=== PATIENT | male | born 1930 | race Caucasian/White ===

== ENCOUNTER 2016-10-28 16:02 | Inpatient (IN) | payer OTHER ==
--- NOTE | 2016-10-28 18:09 | ED EKG INTERP ---
EKG Interpretation - EKG Time of EKG reading by physician:: 16:08 EKG Read and Signed by:: Vargas Delgado EKG Interpretation (*Must complete 3 of following elements*): Abnormal (Low voltage QRS) Rate: 82 Rhythm: Sinus rhtyhm with frequent and consecutive PVC Attestation - Scribe Verification/Attestation Scribe:: Andre Miguel Acting as Scribe for:: Vargas Delgado Scribe documention review:: This chart was documented by a scribe and accurately reflects the service the provider performed and the decisions made by the provider.
[2016-10-28 18:33] LABS: BASO% 0.6 % (0.0-0.8); EOS# 0.08 X1000 (0.0-0.7); EOS% 1.7 % (0.0-10.0); HEMATOCRIT 43.4 % (42.0-52.0); HEMOGLOBIN 14.2 g/dL (14.0-18.0); LYMPH# 1.15 X1000 (1.2-3.4); LYMPH% 24.9 % (20.5-51.1); MANUAL DIFF NEEDED? NO; MCH 34.6 PG (27-31); MCHC 32.7 g/dL (33-37); MCV 105.9 FL (81-99); MONO% 10.8 % (1.7-9.3); MPV 9.6 FL (7.4-10.4); PLT 183 X1000 (130-400)
--- NOTE | 2016-10-28 18:44 | PROVIDER DOCUMENTATION ---
HPI-Cardiac General - General Chief Complaint: Dizziness Stated Complaint: LOW HEART RATE Time Seen by Provider: 10/28/16 18:11 Source: patient, family Home Medications: Home Medication List Medication Instructions Recorded Confirmed Last Taken Type Aspirin 81 mg PO DAILY 08/02/12 10/28/16 10/28/16 08:00 History Multivitamin [Multivitamins] 1 each PO DAILY 03/24/13 10/28/16 10/28/16 08:00 History Potassium Chloride 10 meq PO EVERY OTHER DAY 10/28/15 10/28/16 10/28/16 08:00 History Allopurinol 100 mg PO DAILY 07/25/16 10/28/16 10/28/16 08:00 History Cyanocobalamin (Vitamin B-12) 1,000 mcg PO DAILY 07/25/16 10/28/16 10/28/16 08: 00 History [Vitamin B12] Arformoterol Neb [Brovana Neb] 15 microgm INH RTQ12H #60 neb 07/29/16 10/28/16 Unknown Rx Digoxin [Lanoxin] 125 microgm PO DAILY #30 tablet 07/29/16 10/28/16 10/21/16 08: 00 Rx Ipratropium [place] Neb [Atrovent 0.5 mg INH RTQ4H #90 neb 07/29/16 10/28/16 Unknown Rx Neb] Levetiracetam [Keppra] 750 mg PO BID #60 tablet 07/29/16 10/28/16 10/28/16 08: 00 Rx Trazodone [Desyrel] 50 mg PO HS PRN PRN #30 tablet 07/29/16 10/28/16 Unknown Rx B12/Levomefolate Calcium/B-6 1,000 mcg PO DAILY 10/28/16 10/28/16 10/28/16 08: 00 History [Foltx Tablet] Diltiazem [Cardizem] 120 mg PO DAILY 10/28/16 10/28/16 10/28/16 08:00 History Furosemide [Lasix] 20 mg PO EVERY OTHER DAY 10/28/16 10/28/16 10/28/16 08:00 History Guaifenesin E.r. [Mucinex] 600 mg PO BID 10/28/16 10/28/16 10/28/16 08:00 History - History of Present Illness-Cardiac Nature of Presenting Problem: Pt is a 86 yom who presents to ER after having a bradycardic episode at Dr. Lopez (GI doctor) for esophageal stretching. Pt reports that when the nurse was taking his vitals, he had a heart rate of 29. Nurse checked it again manually and pt still had H/R of 29, and then Dr. Song checked pt's H/R, it was still 29. Pt complains of dizziness (which pt says is normal for him), palpitations, intermittent diarrhea, loss of appetite, recent weight loss. Pt reports that he passed a renal stone yesterday. Pt denies chest pain, shortness of breath. Quality of Pain: reports: none Severity in ED: moderate Onset/Duration: this evening Timing: gone now, resolved prior to arrival Context/Activities at Onset: reports: light activity Palpitation Quality: slow heart rate History of arrythmia: reports: A-Fib Associated Symptoms: reports: dizziness, fatigue, weakness. denies: diaphoresis , fever/chills, headache, heartburn, nausea, shortness of breath, swelling/lump in chest, syncope, vomiting Review of Systems - Adult - REVIEW OF SYSTEMS - ADULT Constitutional: reports: fatique, weight loss. denies: chills, fever, night sweats, weight gain Eyes: reports: no symptoms reported Ears, Nose, Mouth & Throat: reports: no symptoms reported Cardiovascular: reports: irregular heart rate. denies: chest pain, edema, heart murmur, orthopnea, palpitations, poor circulation, PND, syncope Respiratory: reports: no symptoms reported Gastrointestinal: reports: diarrhea, poor appetite. denies: abdominal pain, hematemesis, constipation, difficulty swallowing, frequent heartburn, nausea, rectal bleeding, vomiting Genitourinary: reports: no symptoms reported Musculoskeletal: reports: no symptoms reported Integumentary: reports: no symptoms reported Neurological: reports: dizziness/vertigo. denies: ataxia, headache/migraines, loss of balance, numbness, paresthesia, seizure, slurred speech, syncope, tremors Psychiatric: reports: no symptoms reported Endocrine: reports: no symptoms reported Hematologic/Lymphatic: reports: no symptoms reported Allergic/Immunologic: reports: no symptoms reported All Other Systems: Reviewed and Negative Past History - Adult - PAST MEDICAL HISTORY-ADULT Review of Records: reports: Nursing Assessment Review, Medications Reviewed Gastrointestinal: reports: cholelithiasis Genitourinary: reports: incontinence, retention, chronic UTI's, prostatitis Musculoskeletal: reports: arthritis Neurological: reports: other (ich when was in coumadin) - PRIOR SURGERIES/PROCEDURES Surgical/Procedure History: reports: reviewed, not pertinent, other (aortic valve repair) - IMMUNIZATION STATUS Childhood Immunizations: See Nurse Assessment Flu Vaccine: See Nurse Assessment - FAMILY HISTORY Family History: CAD over 55 yo Physical Exam-General - PHYSICAL EXAM-ADULT Initial Vital Signs Reviewed: Yes - CONSTITUTIONAL General Appearance: appears well, alert, moderate distress, thin, lethargic. negative: obese, anxious, obtunded, combative - RESPIRATORY Respiratory: chest non-tender, lungs clear, normal breath sounds. negative: respiratory distress, decreased breath sounds, accessory muscle use, wheezing - CARDIOVASCULAR Cardiovascular: normal peripheral pulses, irregularly irregular. negative: bradycardia, tachycardia - MUSCULOSKELETAL Extremity: normal range of motion, non-tender, normal gait, pedal edema (very minimal fluid retention in RLE) - NEUROLOGIC Neurologic: grossly normal, no motor/sensory deficits - PSYCHIATRIC Psych/Mental Status: normal mood/affect, normal thought content, normal thought process, oriented x 3, depressed affect Progress - PLAN OF CARE/RESULTS Progress/Plan/Lab Results: POC: Consult with trouble operator; Possibly admit for bradycardic episode at Dr. Song's. 1902: Pt's lab work came back and Dr. Virginia serrano hospitalist. Vital Signs - 24 hr 10/28/16 10/28/16 16:11 18:18 Temperature 97.4 F L Pulse Rate 66 80 Respiratory 14 24 Rate Blood Pressure 133/59 138/70 O2 Sat by Pulse 99 93 L Oximetry Orders Category Date Time Status CBC WITH ELECTRONIC DIFF [HEME] Stat Lab 10/28/16 16:50 Completed CMP [COMPREHENSIVE METABOLIC PANEL] [CHEM] Stat Lab 10/28/16 16:50 Completed DIGOXIN [TDM] Stat Lab 10/28/16 16:50 Completed MAGNESIUM [CHEM] Stat Lab 10/28/16 16:50 Completed Laboratory Tests 10/28/16 10/28/16 10/28/16 16:50 16:50 16:50 WBC 4.62 L RBC 4.10 L Hgb 14.2 Hct 43.4 MCV 105.9 H MCH 34.6 H MCHC 32.7 L RDW Std Deviation 13.6 Plt Count 183 MPV 9.6 Immature Gran % (Auto) 0.0 Neut % (Auto) 62.0 Lymph % (Auto) 24.9 [place] % (Auto) 10.8 H Eos % (Auto) 1.7 Baso % (Auto) 0.6 Immature Gran # (Auto) 0.00 Neut # (Auto) 2.86 Lymph # (Auto) 1.15 L [place] # (Auto) 0.50 Eos # (Auto) 0.08 Baso # (Auto) 0.03 Sodium 140 Potassium 4.5 Chloride 98 Carbon Dioxide 34 Anion Gap 8 BUN 31 H Creatinine 1.3 H Estimated GFR/1.73 m2 52 BUN/Creatinine Ratio 24 Glucose 97 Calculated Osmolality 286 Calcium 9.5 Magnesium 2.3 Total Bilirubin 0.73 AST 15 ALT 10 Alkaline Phosphatase 72 Total Protein 7.2 Albumin 3.2 L Globulin 4.0 Albumin/Globulin Ratio 0.8 Digoxin 0.2 L - REASSESSMENT Reassessment #1 Time Reassessed: 19:16 Status: other (Dr. Lucas discussed results of pt's labs as well as POC including to admit pt. Pt is aware and verbally agrees.) - CONSULTS/PCP/HOSPITALIST Notification #1 *Consult/PCP/Hospitalist*: Dr. Witt (Hospitalist) Time Discussed: 19:08 Consult Disposition: Admit Departure - Departure Time of Disposition Order: 19:05 DIAGNOSIS: Sick sinus syndrome Disposition: ADMITTED INPATIENT 09 Certified Medical Emergency: Emergent Condition: Stable Referrals: Mark Cortes MD [Primary Care Provider] - Attestation - Scribe Verification/Attestation Scribe:: Andre Miguel Acting as Scribe for:: Bhargav Lucas Scribe documention review:: This chart was documented by a scribe and accurately reflects the service the provider performed and the decisions made by the provider.
[2016-10-28 18:48] LABS: ALBUMIN 3.2 g/dL (3.5-5.0); CALCIUM 9.5 mg/dL (8.8-10.2); MAGNESIUM 2.3 mg/dL (1.5-2.7); POTASSIUM 4.5 mmol/L (3.5-5.1); TOTAL BILIRUBIN 0.73 mg/dL (0.20-1.00); TOTAL PROTEIN 7.2 g/dL (6.3-8.3)
[2016-10-28] MEDS ORDERED: DESYREL PO PRN (19:54)
[2016-10-28] MEDS: BROVANA NEB INH SCH (19:54)
[2016-10-28] MEDS ORDERED: ATROVENT NEB INH SCH (19:54)
[2016-10-28] MEDS ORDERED: ZOFRAN IV PRN (19:58)
[2016-10-28] MEDS ORDERED: TYLENOL PO PRN (19:58)
--- NOTE | 2016-10-28 21:45 | HISTORY AND PHYSICAL ---
REFERRING PHYSICIAN: Dane Cortes MD REASON FOR ADMISSION: Frequent palpitations and dizziness. HISTORY OF PRESENT ILLNESS: Mr. Jr Sutherland is a 60-year-old male with past medical history of paroxysmal atrial fibrillation, idiopathic peripheral neuropathy, petit mal seizures, kidney stones, MGUS, COPD, gout. He comes in today complaining of frequent thumping heart beats over the last 1 week. He is also complaining of dysphagia for several weeks. It was the latter complaint that got him to see Dr. Song, logistics project manager today, but while he was seeing Dr. Song, they noticed that his heart rate was persistently in 20-30 range. He was then advised to go to the ER to get this checked out. Since he has been in the ER, his heart rate has also been running on the low side. However, he has received breathing treatments and his heart rate has come up. Pulse rate is 83, blood pressure 117/87, respirations 24, temperature is 97.4 degrees, 94% O2 saturation. The patient currently only admits to having episodes where his heart he feels a very thumping forceful heartbeat every now and again which has been ongoing for the last 1 week. He has a chronic history of dizziness, but other than that, he denies any other acute complaints. He does complain of dysphagia to solids and liquids, and also thinks sometimes he chokes. He has never had an EGD performed and was going to see Dr. Song for this. The family was noted profound weight loss over several months, but the patient denies any other GI complaints other than the aforementioned dysphagia. He reports that he has a longstanding history of "distal neuropathy" and he requires a walker to ambulate in a stooped position shuffling his legs. No tremors are noted. No additional cardiorespiratory complaints of note. He has in the past reported history of his heart rate going up in the 160s and 170s and he actually was placed on antiarrhythmics i.e. Cardizem and digoxin to keep his heart rate in an acceptable range. REVIEW OF SYSTEMS: Twelve systems negative otherwise. Positive as per HPI. No arthralgias or rash. No bleeding from any orifice. No genitourinary or prostatic symptoms. ALLERGIES: Intolerance to NSAID. HOME MEDICATIONS: Aspirin 81 mg daily. Multivitamin tablets once a day. Potassium chloride 10 mEq daily, allopurinol 100 mg daily, vitamin B 12,000 mcg daily. Cardizem 120 mg daily, extended release. Lasix 20 mg every other day, Mucinex 600 mg b.i.d., trazodone 50 mg at bedtime p.r.n., Atrovent inhaler q.6 p.r.n., Brovana 150 mg b.i.d., Keppra 75 mg b.i.d., digoxin 175 mg daily. FAMILY HISTORY: Patient's father of hemorrhagic stroke, mom has hypertension. Other family history of heart disease, prostate cancer, breast cancer in first-degree relatives. SOCIAL HISTORY: Does not smoke, drink, or use drugs. He is . Lives with his spouse who is very supportive. SURGICAL HISTORY: Cataract surgery. Mitral valve replacement with bovine valve and inguinal hernia repair. Cholecystectomy and suprapubic catheter placement. LABORATORY WORK/DIAGNOSTICS: White count 4000, hemoglobin and hematocrit 14 and 43, platelets 183,000. BUN is 31, creatinine 1.6. Patient's has a normal differential. Digoxin 0.2. His EKG showed low-voltage with frequent PVCs and PACs. Heart rate is 82, no gross ST or T wave changes consistent with ischemia. Chest film ordered. PHYSICAL EXAMINATION: GENERAL: Chronically ill, anorexic elderly man who is not in acute distress. He is alert and oriented to person, place, and time with a flat affect and somewhat normal mood. He is not anxious. HEENT: Head is normocephalic, but he has bitemporal wasting. Eyes, SINA. EOMI. He is anicteric and mildly pale. ENT and oropharyngeal examination is grossly normal with no gross oropharyngeal exudates or erythema. No visual signs of cyanosis noted. NECK: Supple. Has noticeable JVD but no hepatojugular reflux. No thyromegaly appreciated, no bruit heard. No lymphadenopathy palpated in the cervical and supraclavicular area and axillary area. CHEST: Decreased air entry in both lung estrada. No wheezes appreciated. CARDIOVASCULAR: First and second heart sounds heard. No gallops, murmurs, rubs, rhythm is regular with occasional pauses. ABDOMEN: Scaphoid, soft, nontender, no masses or megaly. Bowel sounds hypoactive. RECTAL: Deferred at this time. : Patient did have a suprapubic catheter in place with no evidence of surrounding infection. EXTREMITIES: No edema, clubbing or peripheral cyanosis. Pulses distally intact, but decreased with volume in the pulses. NEUROLOGICAL: No focal deficits. No tremors appreciated. SKIN: Intact. No gross breakdown lesions or erythema. MUSCULOSKELETAL: Patient is diffuse muscular atrophy. No hypertonicity. Myerson exam is somewhat positive. FINAL DIAGNOSES: 1. Tushar-tachy syndrome i.e. sick sinus syndrome. The patient was visualized to have intermittent bouts of tachycardia with bradycardia. We will consult Cardiology to see. Digoxin and Cardizem will be with held for now unless the patient becomes profoundly tachycardic. 2. In the interim, we will continue with nebulizer treatments just to maintain his heart rate in the greater than 50 or 60 for now and if he becomes profoundly symptomatic, we will consider giving intravenous atropine or other cardiostimulatory medication. 3. Stage III chronic kidney disease. We will start patient on low rate intravenous fluid resuscitation for intravascular support. The patient vital signs otherwise seem to be appropriate at this point in time, although his oral intake has diminished per the family. 4. Dysphagia with weight loss. Consider malignancy. Patient will undergo esophagogastroduodenoscopy once he is stable enough to proceed. We also need to consider the possibility of parkinsonian type syndrome i.e. multiple system atrophy which could explain both his neuromuscular issue and his erratic heart rate i.e. a dysautonomia. 5. Seizure disorder, continue Keppra. 6. Chronic obstructive pulmonary disease with evidence of fibrosis on his prior chest x-ray which could have been a complication of prior use of amiodarone. However, cannot rule out chronic aspiration as an etiology of this. Continue on breathing treatments for now. 7. Gout. Consider allopurinol. 8. Microcytic anemia. Order thyroid studies and other anemia studies. Also need to consider patient has history of MGUS. This could be partly responsible for this or patient might have a mild coexisting myelodysplastic syndrome, which may need to be ruled out. Also rule out the possibility of hepatic etiology causing this. Sometimes large MCVs could be due to chronic obstructive pulmonary disease, but this patient's chronic obstructive pulmonary disease does not seem to be that severe.
[2016-10-28 21:53] LABS: FERRITIN 242 ng/mL (30-400)
[2016-10-28] MEDS: MUCINEX PO SCH (23:20)
[2016-10-28] MEDS: NS 1,000 ML IV SCH (23:20)
[2016-10-28] MEDS: LOVENOX SUBQ SCH (23:20)
[2016-10-28] MEDS: DUONEB (A & A) INH SCH (23:30)
[2016-10-29] MEDS: KEPPRA PO SCH ×3 (00:03→20:28)
[2016-10-29 02:47] LABS: BASO% 0.5 % (0.0-0.8); EOS# 0.14 X1000 (0.0-0.7); EOS% 3.3 % (0.0-10.0); HEMATOCRIT 39.4 % (42.0-52.0); LYMPH# 1.15 X1000 (1.2-3.4); LYMPH% 27.3 % (20.5-51.1); MANUAL DIFF NEEDED? YES; MCH 34.8 PG (27-31); MCV 105.3 FL (81-99); MONO# 0.46 X1000 (0.11-0.59); MONO% 10.9 % (1.7-9.3); MPV 9.4 FL (7.4-10.4); PLT 150 X1000 (130-400); RBC 3.74 XMIL (4.7-6.1)
[2016-10-29 03:11] LABS: EOS 1 % (1-10); LYMPHS 25 % (21-51); MONO 8 % (1-9)
[2016-10-29 03:45] LABS: ALBUMIN 3.3 g/dL (3.5-5.0); CALCIUM 8.9 mg/dL (8.8-10.2); POTASSIUM 3.8 mmol/L (3.5-5.1); TOTAL BILIRUBIN 1.12 mg/dL (0.20-1.00)
--- NOTE | 2016-10-29 05:54 | EKG Report ---
Test Performed on : 10/28/2016 4:08:00 PM Test Reason : No Order in [facility] Blood Pressure : / mmHG Vent. Rate : 082 BPM Atrial Rate : 082 BPM P-R Int : 164 ms QRS Dur : 096 ms QT Int : 376 ms P-R-T Axes : 086 062 064 degrees QTc Int : 439 ms Sinus rhythm. with frequent and consecutive premature ventricular complexes. Low voltage QRS Abnormal ECG When compared with ECG of 28-JUL-2016 07:09, No significant change was found Unconfirmed Result
--- NOTE | 2016-10-29 07:38 | Diag Imaging Result Document ---
PROCEDURE NAME: CHEST-2 VIEWS - 10/28/2016 FRONTAL AND LATERAL CHEST, TWO VIEWS: COMPARISON: 07/27/2016. FINDINGS: The lungs are well expanded. There are small to moderate size bilateral pleural effusions. A heart valve has been replaced. The heart is borderline mildly prominent. There is basilar atelectasis and there could be underlying infiltrates as well. The upper lungs are clear. The vessels are not distended. IMPRESSION: Bilateral pleural effusions with basilar atelectasis although there could be underlying infiltrates.
[2016-10-29] MEDS: DUONEB (A & A) INH SCH ×5 (08:15→23:42)
[2016-10-29] MEDS: THERA M PLUS PO SCH (08:50)
[2016-10-29] MEDS: ZYLOPRIM PO SCH (08:50)
[2016-10-29] MEDS: MUCINEX PO SCH ×2 (08:50→20:28)
[2016-10-29] MEDS: ASPIRIN PO SCH (08:50)
[2016-10-29] MEDS: FOLTX PO SCH (08:50)
[2016-10-29] MEDS: VITAMIN B-12 PO SCH (08:50)
[2016-10-29] MEDS: NS 1,000 ML IV SCH (09:59)
[2016-10-29] MEDS: BROVANA NEB INH SCH ×2 (11:39→23:42)
--- NOTE | 2016-10-29 13:51 | CONSULTATION ---
DATE OF CONSULTATION: 10/29/2016 Mr. Sutherland is an 86-year-old gentleman. Cardiology was consulted for bradycardia, premature ventricular beats. Patient has history of paroxysmal atrial fibrillation and failed EP studies in the past. He has COPD and comes with complaints of having had palpitations. He was seen by gastroenterology for difficulty in swallowing. In their office he was noted to have a heart rate of 20-30. He was sent to the emergency room, was admitted. The patient in the emergency room had a blood pressure of 117/87. Heart rate was 83. Premature ventricular beats were noted. The patient had noticed palpitations which have been there for many years. He does not complain of any chest pain suggestive of angina. He was with GI consultation for dysphagia and upper GI procedures were contemplated. He has had longstanding history of neuropathy. From a cardiac standpoint, has had extensive cardiac history as below. REVIEW OF SYSTEMS: A 14 point review of systems was done. GI: As above. There is no hematemesis or melena. Central nervous system: No focal weakness to suggest a CVA or TIA. Genitourinary: There is no dysuria or hematuria. PAST MEDICAL HISTORY: 1. Mitral valve replacement, Elvia-Glover valve, left heart catheterization 09/25/2008. 2. History of atrial fibrillation, atrial flutter. The patient while in [place], [place] had attempt at EP studies for ablation, and that was unsuccessful. 3. In addition he has had significant history of recurrent nonsustained supraventricular tachycardia, then atrial flutter as well as multiple comorbidities. He has been intolerant to Multaq, has had problems with beta blockers as well as the amiodarone given pulmonary fibrosis and worsening shortness of breath, and he was put on Cardizem and digoxin if needed. He also has had bradycardia in the past. 4. Dizziness. 5. History of subdural hematoma with bilateral bur holes on 08/09/2011. 6. Gallstones. HOME MEDICATIONS: 1. Aspirin 81 mg a day. 2. Potassium supplements. 3. Allopurinol 100. 4. Multivitamins. 5. Cardizem 120 daily. 6. Digoxin p.r.n. for tachycardia. 7. Brovana 150 b.i.d. 8. Keppra 75 b.i.d. 9. Digoxin as needed. 10. Atrovent inhalers. FAMILY HISTORY: The patient's father of hemorrhagic stroke. Mother had hypertension. SOCIAL HISTORY: Patient does not smoke. Does not drink. PAST SURGICAL HISTORY: 1. Cataract surgery. 2. Cholecystectomy. 3. Suprapubic catheter placement. PHYSICAL EXAMINATION: On examination, blood pressure was stable per start. Cardiovascular System: Normal jugular venous pressure. There is no thyromegaly, there is no carotid bruit. First and second heart sounds were heard. There is faint systolic murmur. Respiratory System: Normal air entry. There are no crepitations, rhonchi. Abdomen: Soft, nontender. The patient was frail-looking. HEENT: Atraumatic, pupils reacting to light. LABORATORY: WBC 4000, hemoglobin hematocrit 14 and 43. Platelet 183,000. BUN 31, creatinine 1.6. Digoxin level 0.2. Electrocardiogram revealed a normal sinus rhythm with frequent premature ventricular beats, biatrial enlargement. Nonspecific ST-T changes. Cardiac enzymes negative. ASSESSMENT AND PLAN: 1. Mr. Jr Sutherland is an 86-year-old, gentleman who has a history of mitral valve replacement. 2. Recurrent atrial arrhythmias in the past and has had multiple Holter monitorings in our office which revealed premature ventricular beats with couplets, in addition to PVCs up to 14% in a given day. 3. He has had a subdural hematoma, history with bilateral bur holes during 08/19/2011. He was noted to be bradycardic with a heart rate of 20-30 in the hospital. He has been in sinus rhythm. He is noted to have PVCs in bigeminy which has been a longstanding chronic problem as well. Probably his pulse rate, which was noted in the doctor's office, was likely related to this to have accounted for a bradycardia. However, so far during this hospitalization he has not had any heart rate below 50 beats per minute and he has been in sinus rhythm with multiple PVCs and PACs. RECOMMENDATIONS: 1. As far as rhythm is concerned, I have not made any changes. He has been intolerant to amiodarone, beta-blockers, Multaq and has been taking Cardizem. I will not make any changes. 2. Would recommend proceeding with GI workup as deemed fit. 3. He had an attempted and failed ablation in 2009 in [place], [place]. He is not anticoagulated given his subdural hematomas in the past. 4. Thank you for the consult. We will follow hospital course.
--- NOTE | 2016-10-29 14:20 | PROGRESS NOTE ---
DATE: 10/29/2016 SUBJECTIVE: Mr. Sutherland has a history of paroxysmal atrial fibrillation and atrial flutter. He was sent over to the hospital yesterday from Dr. Song's office because of bradycardia with a heart rate reported as 29. He was asymptomatic. The patient remains in sinus rhythm. Heart rate is ranging from 60 to 78. He has frequent PVCs on telemetry. Cardiac enzymes are negative. Thyroid studies were normal. He denies any chest pain or anginal equivalents. He does have a longstanding history of COPD. He is breathing comfortably. He is maintaining O2 saturations of 97 to 100% on room air. OBJECTIVE: Vital signs: Temperature 97.8 degrees, pulse 78, respirations 18, BP 109/74. CV: Regular rate and rhythm with frequent ectopy. Lungs: Distant breath sounds with increased period of expiration. Abdomen: Soft, nontender, with active bowel sounds. ASSESSMENT AND PLAN: 1. Paroxysmal atrial flutter. He was referred to [facility] for evaluation of bradycardia. He is having frequent PVCs. On his most recent Holter monitor he had over 14,000 PVCs in a 24 hour period of time. He does not appear to be having any significant pauses which would require pacemaker placement. We will continue to hold the digoxin but continue oral Cardizem. I appreciate Dr. Hill's help. He has an attempt at ablation in the remote past which was unsuccessful. Given his age and overall health he is not really a candidate for ablation if he were to have significant recurrent arrhythmias. He has had significant pulmonary fibrosis due to both amiodarone and Multaq. We will monitor his heart rhythm and as long as he has no further periods of bradycardia or evidence of pauses we will plan on discharging him home tomorrow. 2. Chronic obstructive pulmonary disease. He is breathing comfortably. We will continue Brovana nebulized b.i.d. and ipratropium nebulized t.i.d.
--- NOTE | 2016-10-29 15:46 | EKG Report ---
Test Performed on : 10/29/2016 11:30:08 AM Test Reason : rythm changes Blood Pressure : / mmHG Vent. Rate : 083 BPM Atrial Rate : 083 BPM P-R Int : 176 ms QRS Dur : 100 ms QT Int : 372 ms P-R-T Axes : 084 060 059 degrees QTc Int : 437 ms Sinus rhythm. with marked sinus arrhythmia. with frequent premature ventricular complexes. Low voltage QRS Borderline ECG When compared with ECG of 28-OCT-2016 16:08, (Unconfirmed) No significant change was found Confirmed by Sudheer Roberts MD ([id number]) on 10/29/2016 9:50:42 PM
[2016-10-29] MEDS: LOVENOX SUBQ SCH (20:28)
--- NOTE | 2016-10-30 07:11 | EKG Report ---
Test Performed on : 10/30/2016 06:44:39 AM Test Reason : arrhythmia Blood Pressure : / mmHG Vent. Rate : 092 BPM Atrial Rate : 092 BPM P-R Int : 184 ms QRS Dur : 100 ms QT Int : 350 ms P-R-T Axes : 080 063 056 degrees QTc Int : 432 ms Sinus rhythm. with marked sinus arrhythmia. with frequent premature ventricular complexes. Low voltage QRS Borderline ECG When compared with ECG of 29-OCT-2016 11:30, No significant change was found Confirmed by Sudheer Roberts MD ([id number]) on 10/31/2016 8:53:45 PM
[2016-10-30] MEDS: DUONEB (A & A) INH SCH (08:15)
[2016-10-30] MEDS ORDERED: BROVANA NEB ONE (08:34)
[2016-10-30] MEDS: MUCINEX PO SCH (08:56)
[2016-10-30] MEDS: VITAMIN B-12 PO SCH (08:57)
[2016-10-30] MEDS: ASPIRIN PO SCH (08:57)
[2016-10-30] MEDS: THERA M PLUS PO SCH (08:57)
[2016-10-30] MEDS: FOLTX PO SCH (08:58)
[2016-10-30] MEDS: KEPPRA PO SCH (08:58)
[2016-10-30] MEDS ORDERED: KLOR-CON PO SCH (09:00)
[2016-10-30] MEDS ORDERED: LASIX PO SCH (09:00)
[2016-10-30] MEDS ORDERED: LASIX IV ONE (09:03)
[2016-10-30] MEDS: ZYLOPRIM PO SCH (09:04)
[2016-10-30] MEDS ORDERED: ATROVENT NEB INH SCH (10:00)
--- NOTE | 2016-10-30 10:35 | PROGRESS NOTE ---
DATE: 10/30/2016 SUBJECTIVE: Mr. Sutherland remains in normal sinus rhythm. He has had no further episodes of symptomatic bradycardia. He denies any chest pain, palpitations, or anginal equivalents. Cardiac enzymes have been normal. His heart rate has ranged from 69-90. He does have a longstanding history of chronic COPD and chronic congestive heart failure secondary to diastolic dysfunction. He is breathing comfortably. His O2 saturations are in the range of 95 to 97% on 2 L. His respiratory rate is in the range of 16-18. He denies any PND, orthopnea, or increasing peripheral edema. He has mild shortness of breath when walking to the bathroom. 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 He has 2 small pleural effusions. OBJECTIVE: Vital signs: He is afebrile. Pulse 86, respirations 18, BP 120/66. CV: Regular rate and rhythm. Lungs: Faint crackles in the bases bilaterally. He has distant breath sounds with increased period of expiration. Abdomen: Soft, nontender, with active bowel sounds. Extremities: Without edema. ASSESSMENT AND PLAN: 1. Paroxysmal atrial fibrillation and atrial flutter. He remains in normal sinus rhythm. He still has frequent PVCs. He has had no further episodes of bradycardia. We will continue digoxin and Cardizem. If he were to have any significant pauses then I believe that he would be a candidate for a pacemaker. 2. Chronic obstructive pulmonary disease secondary to pulmonary fibrosis as well as chronic congestive heart failure secondary to diastolic dysfunction. I am going to check a room air O2 saturation and stop the oxygen if his oxygen saturation is greater than 90%. We will continue Brovana nebulized b.i.d. and ipratropium nebulized t.i.d. We will continue to titrate upward on the diltiazem as tolerated to improve cardiac compliance. We will give him a 1 time dosage of Lasix this morning.
[2016-10-30] MEDS: BROVANA NEB INH SCH (11:28)
[2016-10-30 12:01] VITALS: BP 94/67
--- NOTE | 2016-10-30 14:25 | CONSULTATION ---
DATE OF CONSULTATION: 10/30/2016 HISTORY AND REASON FOR CONSULTATION: Evaluation of this patient with dysphagia. HISTORY OF PRESENT ILLNESS: This patient was seen by me in the office on 10/28/2016. At that time, the patient had very low heart rate. Therefore the patient was sent to the emergency room. He came to my office for esophagogastroduodenoscopy for difficulty in swallowing. He was previously scheduled for esophagogastroduodenoscopy about a year ago. At that time the patient said that he was quite scared and he did not want to get that test done. Although it was scheduled he never got it done. That visit was on 01/24/2016. At that time, he had difficulty in swallowing intermittently for some time for solids. He had advanced COPD at that time. His said that he was ready to get it done now because he has progressively become weak and also had more difficulty in swallowing. Main problem was in the throat when he swallows, he talks and has coughing spells, even with water and any kind of solid. He is able to swallow some soft food. His heart rate was remaining between 29 and 40 at the time when I checked him. He was constantly dizzy. There was no more dizziness noted than he had. He was very weak and emaciated. I told his and himself that at present the preference is to get his heart fixed. He was admitted on 10/28/2016. Has been seen by gasoline power shovel operator Dr. Hill. After a breathing treatment his heart rate has improved. I took a detailed understanding of his condition from the consultation notes and patient's description of his problems. Mainly, he has: 1. Advanced chronic obstructive pulmonary disease which makes him short of breath all the time and he is using a nebulizer at home and also in the hospital. His shortness of breath has improved since admission. 2. The patient has had mitral valve replacement with Elvia-Glover valve. His last left heart categorization was on 09/25/2008. 3. History of atrial fibrillation flutter while he was in [place] and he had EP studies done and ablation was done which was unsuccessful. 4. Constant dizziness. 5. History of subdural hematoma in 2010 after having had anticoagulation therapy. 6. Gallstones. 7. Hyperuricemia, gout. 8. Allergic rhinitis. 9. Osteoarthritis of both hips and knees. 10. Neurogenic bladder. 11. Benign prostatic hypertrophy. PAST SURGICAL HISTORY: 1. Mitral valve replacement. 2. Cholecystectomy. 3. Cataract surgery. 4. Suprapubic catheter placement. PHYSICAL EXAMINATION: General: The patient is alert, oriented x3. He seems to be distressed because of shortness of breath. Vital Signs: The temperature is 97.9 degrees, pulse rate is 106, respiratory rate is 22. He has very shallow respirations which are quite frequent and accessory muscles of respiration are functional. He is extremely emaciated. His neck is so thin with very prominent Ricardo's apple. It is supple. He is a mouth breather, keeping his mouth open and mouth seems to be dry because of mouth breathing. His eyes are sunken. Mucous membranes are dry. Cardiac: Both heart sounds are heard. Tachycardic. I could not hear any murmur. Lungs: Reveal shallow respirations with a hyper-resonance on percussion and bilateral basilar crackles and some wheezing. Abdomen: Soft, nontender. No masses felt. Bowel sounds are heard. Extremities: Free of any edema. LAB DATA: WBC count is 4.21, hemoglobin 13, hematocrit 39.4, MCV is 105.5, the platelet count is 150,000. Sodium is 142, potassium 3.8, chloride is 100, CO2 is 30. BUN is 28, creatinine is 1.2. Total bilirubin is 1.12. AST is 12, ALT is 8. Total protein is 6. Albumin is 3.3. B12 more than 2000. Folate more than 40. TSH is 1.59 and digoxin is 0.2. IMPRESSION: 1. Oropharyngeal dysphagia. 2. Extremely advanced COPD. 3. Significant cardiac arrhythmia with possible sick sinus syndrome. 4. Mitral valve replacement. RECOMMENDATION: I had a long discussion with the patient as well as his . He has oropharyngeal dysphagia most likely, and he is a high risk candidate for esophagogastroduodenoscopy or dilatation of the esophagus. He was quite scared for the previous scheduled endoscopy in January of 2016. His general condition has advanced and I have explained that he is a poor candidate for any kind of sedation or anesthesia. Most likely, his dysphagia, oropharyngeal is secondary to his inability to use his epiglottis to keep his trachea closed at the time when is swallowing and that poses a big problem because he needs calories to actually get improvement in his breathing ability. He will be consuming more calories than somebody who does not have any difficulty in breathing and he is unable to get these calories in so he will be continuing to lose weight if he does not get calories in. I have explained to the patient and that any kind of instrumentation putting in mouth will be detrimental to him because of the high risk of him stopping breathing and he might go on a respirator and the possibility of him not coming out of it. At this point I recommend against any kind of endoscopic procedures because nothing might be gained by doing that. If at all evaluation is needed he may need a swallowing study by speech therapy to assess the oropharyngeal dysphagia. That may also be not necessary at this point because he can only swallow pureed diet and soft things. He should also try to thickened liquids with Thick-It. This all explained to the patient and his at the bedside and the nurse taking care of the patient will get the appropriate diet advice given to the patient at the time of discharge. If Dr. Cortes is willing to get a speech therapy evaluation that may be recommended. The patient and his understood the problems and they agreed with my recommendation.
--- NOTE | 2016-10-31 16:27 | DISCHARGE SUMMARY ---
ADMISSION DATE: 10/28/2016 DISCHARGE DATE: 10/30/2016 DISCHARGE DIAGNOSES: 1. Paroxysmal atrial flutter. 2. Paroxysmal atrial fibrillation. 3. Idiopathic peripheral neuropathy. 4. Christine mal seizures. 5. Monoclonal gammopathy of unknown clinical significance. 6. Chronic obstructive pulmonary disease. 7. Chronic congestive heart failure secondary to diastolic dysfunction. 8. Oropharyngeal dysphagia. 9. Dizziness secondary to bradycardia. DISCHARGE INSTRUCTIONS: 1. Return to clinic in 1 week to see me, Dr. Saturnino Cortes, in anticipation of a transition of care visit. 2. Activity as tolerated. 3. Mechanical soft diet with all liquids thickened to the consistency of honey. MEDICATIONS: Allopurinol 100 mg daily, Brovana nebulized b.i.d., aspirin 81 mg daily, Foltx 1000 mcg daily, digoxin 125 mcg daily, diltiazem 120 mg daily, Lasix 20 mg every other day, ipratropium nebulized t.i.d., Keppra 750 mg b.i.d., multivitamin 1 p.o. daily, KCl 10 mEq p.o. every other day, trazodone 50 mg at bedtime p.r.n. insomnia. PHYSICAL EXAM: General: This is an elderly, frail 86-year-old gentleman in no apparent distress. Vital signs: He is afebrile. Vital signs are stable. CV: Regular rate and rhythm with frequent ectopy. Lungs: Distant breath sounds with increased period of expiration. No wheezing with forced expiration. Abdomen: Soft, nontender with active bowel sounds. Mr. Jr Sutherland has a history of paroxysmal atrial fibrillation and atrial flutter. He had an attempted ablation many years ago. He continues to have episodes of paroxysmal atrial fibrillation and atrial flutter. We have had to stop both Multaq and amiodarone due to pulmonary fibrosis. While in Dr. Song's office he had an apparent episode of bradycardia in which his heart rate was 29. He was asymptomatic. His blood pressure was stable he was brought to the ER where an evaluation was initiated and he was ultimately admitted to the hospital. He remained in normal sinus rhythm throughout his hospitalization. Thyroid studies were within normal limits. He ruled out for myocardial ischemia by serial enzymes. He had no further episodes of bradycardia. Dr. Hill saw the patient in consultation from a cardiology standpoint. He did not feel that we needed to make any changes in his medicines at this time and he was continued on the digoxin and Cardizem. Dr. Hill felt that if he had any significant pauses that he potentially would be a candidate for pacemaker. Given his overall health and multiple medical conditions he is not felt to be a candidate for EPS studies and ablation. He does have a history of progressive dysphagia for which he is losing weight. Dr. Song did not feel that he was a candidate for an EGD. We will place him on mechanical soft diet with all thickened liquids. I am going to make a referral for him to have speech therapy as an outpatient. He does have a longstanding history of monoclonal gammopathy of unknown clinical significance. He has had no previous evidence of conversion to multiple myeloma. We will continue to obtain a 24- hour urine for Bence-Joe proteins, beta 2 microglobulin and skeletal survey every 6 months to screen for conversion to myeloma. Mr. Sutherland does have a living will in the event of a cardiopulmonary arrest. No heroic measures were to be undertaken according to and Mrs. Sutherland and no code blue level 1 was established.
== END 2016-10-30 14:58 | disposition home or self-care (01) | DRG 309 ==
LOC: ED 16:02 → EDIPHOLD 19:58 → 3S 23:58
PROVIDERS: ADMIT Internal Medicine; ATTEND Internal Medicine
DX: R00.1 Bradycardia, unspecified (principal); I50.32 Chronic diastolic (congestive) heart failure; J90 Pleural effusion, not elsewhere classified; R64 Cachexia; D47.2 Monoclonal gammopathy; R13.12 Dysphagia, oropharyngeal phase; I48.0 Paroxysmal atrial fibrillation; I48.92 Unspecified atrial flutter; G40.409 Other generalized epilepsy and epileptic syndromes, not intractable, without status epilepticus; T46.2X5A Adverse effect of other antidysrhythmic drugs, initial encounter; J70.3 Chronic drug-induced interstitial lung disorders; J44.9 Chronic obstructive pulmonary disease, unspecified; N18.3 Chronic kidney disease, stage 3 (moderate); M10.9 Gout, unspecified; N40.1 Benign prostatic hyperplasia with lower urinary tract symptoms; N31.9 Neuromuscular dysfunction of bladder, unspecified; G60.9 Hereditary and idiopathic neuropathy, unspecified; D50.9 Iron deficiency anemia, unspecified; J30.9 Allergic rhinitis, unspecified; M15.9 Polyosteoarthritis, unspecified; Z87.442 Personal history of urinary calculi; Z82.3 Family history of stroke; Z82.49 Family history of ischemic heart disease and other diseases of the circulatory system; Z80.3 Family history of malignant neoplasm of breast; Z80.42 Family history of malignant neoplasm of prostate; Z95.3 Presence of xenogenic heart valve; Z68.20 Body mass index [BMI] 20.0-20.9, adult; Z79.82 Long term (current) use of aspirin; Z79.899 Other long term (current) drug therapy; Z93.59 Other cystostomy status
CPT/HCPCS: 71020; 80053; 80162; 82607; 82728; 82746; 82948; 83540; 83735; 84100; 84443; 84484; 85025; 93005; 93010; 94640; 94761; 96372; J1650; J1940; J7030